=== PATIENT | female | born 1985 | race African-American/Black ===

== ENCOUNTER 2019-01-21 19:25 | Emergency (ER) | payer BC ==
[2019-01-21] MEDS ORDERED: Lorazepam 1 MG TAB ONE (20:15)
== END 2019-01-21 20:35 | disposition home or self-care (01) ==
LOC: SCSER 19:25
DX: F41.9 Anxiety disorder, unspecified (principal); Z79.899 Other long term (current) drug therapy
CPT/HCPCS: 93005